=== PATIENT | female | born 1970 | race Caucasian/White ===

== ENCOUNTER 2020-01-23 02:32 | Inpatient (IN) | payer MEDICAID ==
[2020-01-22] MEDS: ALBUTEROL/IPRATROPIUM 2.5MG/0.5MG, 3 ML NPPB SCH (20:00)
[~2020-01-23] VITALS: Ht 160 cm; Wt 95.6 kg
[2020-01-23] MEDS ORDERED: ALBU90AE2 IH (02:55)
[2020-01-23] MEDS ORDERED: IPRA3AMP30 INH (02:55)
--- NOTE | 2020-01-23 03:13 | NUR ---
assessment made. chart up for MD to see. c/o cough non productive x 2 weeks. Hx of Asthma. denies exposure to people from other states or with respiratory problems.
--- NOTE | 2020-01-23 03:45 | NUR ---
RT at bedside for breathing treatment.
[2020-01-23] MEDS ORDERED: ALBUTEROL SULFATE 2.5 MG/3 ML NPPB ONE (04:00)
--- NOTE | 2020-01-23 04:00 | NUR ---
X ray done. blood drawn by director [employer].
[2020-01-23 04:22] LABS: BASOPHILS # (AUTO) 0.08 x10^3/uL (0-0.1); BASOPHILS % (AUTO) 1 % (0-1); EOSINOPHILS # (AUTO) 0.91 x10^3/uL (0-0.4); EOSINOPHILS % (AUTO) 8 % (1-7); LYMPHOCYTES # (AUTO) 3.23 x10^3/uL (1-3.4); LYMPHOCYTES % (AUTO) 30 % (22-44); MD NO; MEAN CORPUSCULAR HEMOGLOBIN 30.1 pg (27.0-34.8); MEAN CORPUSCULAR VOLUME 91.1 fL (80-100); MEAN PLATELET VOLUME 9.7 fL (7.4-10.4); MONOCYTES # (AUTO) 0.68 x10^3/uL (0.2-0.8); MONOCYTES % (AUTO) 6 % (2-9); NEUTROPHILS # (AUTO) 6.02 x10^3/uL (1.8-6.8); NEUTROPHILS % (AUTO) 55 % (42-75); PLATELET COUNT 239 x10^3/uL (130-400); RED BLOOD COUNT 4.34 x10^6/uL (3.82-5.3); RED CELL DISTRIBUTION WIDTH 14.5 % (9.6-15.2)
[2020-01-23 04:34] LABS: ALBUMIN 3.2 g/dL (3.4-5.0); ANION GAP 5 mmol/L (5-15); CALCIUM 8.5 mg/dL (8.5-10.1); CHLORIDE 108 mmol/L (98-107)
[2020-01-23 04:38] LABS: TROPONIN I < 0.015 ng/mL (0.000-0.045)
--- NOTE | 2020-01-23 04:48 | NUR ---
all labs and X ray resulted. chart up for MD to re-eval.
--- NOTE | 2020-01-23 05:14 | NUR ---
report to ROWAN Soriano.
[2020-01-23] MEDS ORDERED: SODIUM CHLORIDE 0.9% 1,000 ML IV ONE (06:13)
[2020-01-23] MEDS ORDERED: ONDANSETRON 2MG/ML, 2ML IVPush PRN (07:30)
[2020-01-23] MEDS ORDERED: hydrALAzine 20 MG/ML, 1ML IVPush PRN (07:30)
[2020-01-23] MEDS ORDERED: LABETALOL 5MG/ML, 20ML IVPush PRN (07:30)
--- NOTE | 2020-01-23 07:36 | NUR ---
REPORT RECEIVED FROM EROS RN, ASSUMED ACARE OF PT. MICKEY, ADMITTING MD AT BEDSIDE.
[2020-01-23] MEDS ORDERED: ALBUTEROL/IPRATROPIUM 2.5MG/0.5MG, 3 ML ONE (07:59)
[2020-01-23] MEDS ORDERED: BUDESONIDE 0.5 MG/2 ML INHA ONE (07:59)
[2020-01-23] MEDS: BUDESONIDE 0.5 MG/2 ML INHA INH SCH ×2 (09:00→19:57)
[2020-01-23] MEDS ORDERED: ALBUTEROL/IPRATROPIUM 2.5MG/0.5MG, 3 ML NPPB SCH (11:00)
[2020-01-23 11:30] VITALS: BP 122/76
[2020-01-23] MEDS: GUAIFENESIN ER 600 MG TABLET PO SCH ×2 (11:55→21:55)
[2020-01-23] MEDS: POTASSIUM CHLORIDE 20 MEQ TAB.ER.PRT PO SCH ×2 (11:55→18:22)
[2020-01-23] MEDS: methylPREDNISolone SOD SUCC 125 MG/2 ML IVPush SCH ×2 (11:55→18:22)
[2020-01-23] MEDS: HEPARIN 5,000 UNITS/ML, 1ML SQ SCH ×2 (12:01→21:55)
[2020-01-23] MEDS: ALBUTEROL/IPRATROPIUM 2.5MG/0.5MG, 3 ML NPPB SCH (12:45)
[2020-01-23] MEDS: AZITHROMYCIN 500 MG TABLET PO SCH (15:23)
[2020-01-23 17:13] VITALS: BP 140/70
[2020-01-23 18:59] VITALS: BP 130/72
[2020-01-24] MEDS: methylPREDNISolone SOD SUCC 125 MG/2 ML IVPush SCH ×4 (01:08→23:40)
[2020-01-24 03:15] VITALS: BP 109/51
[2020-01-24 04:53] LABS: MEAN CORPUSCULAR HEMOGLOBIN 30.3 pg (27.0-34.8); MEAN CORPUSCULAR HGB CONC 32.3 g/dL (32.4-35.8); MEAN CORPUSCULAR VOLUME 93.9 fL (80-100); MEAN PLATELET VOLUME 9.8 fL (7.4-10.4); PLATELET COUNT 273 x10^3/uL (130-400); RED BLOOD COUNT 4.77 x10^6/uL (3.82-5.3); RED CELL DISTRIBUTION WIDTH 14.9 % (9.6-15.2)
[2020-01-24 05:03] LABS: ALBUMIN 3.3 g/dL (3.4-5.0); ANION GAP 6 mmol/L (5-15); CALCIUM 8.8 mg/dL (8.5-10.1); CHLORIDE 113 mmol/L (98-107)
[2020-01-24 05:07] LABS: ALANINE AMINOTRANSFERASE 21 U/L (12-78); ALKALINE PHOSPHATASE 75 U/L (45-117); BILIRUBIN,TOTAL 0.2 mg/dL (0.2-1.0); CREATININE 0.76 mg/dL (0.55-1.02)
[2020-01-24 05:43] LABS: MD YES
[2020-01-24 05:45] LABS: <PLATELET ESTIMATE> ADEQUATE; <PLT MORPHOLOGY> NORMAL PLT MORPH; <RBC MORPHOLOGY> NORMAL; BAND#(MANUAL) 0.35 x10^3/uL; BANDS%(MANUAL) 2 % (0-7); EOS#(MANUAL) 0.17 x10^3/uL (0.0-0.4); EOS% (MANUAL) 1 % (1-7); LYMPH#(MANUAL) 0.69 x10^3/uL (1-3.4); LYMPHS% (MANUAL) 4 % (22-44); SEG#(MANUAL) 16.09 x10^3/uL (1.8-6.8); SEGS% (MANUAL) 93 % (42-75)
[2020-01-24] MEDS: HEPARIN 5,000 UNITS/ML, 1ML SQ SCH ×3 (06:57→23:40)
[2020-01-24] MEDS: BUDESONIDE 0.5 MG/2 ML INHA INH SCH ×2 (07:46→20:00)
[2020-01-24] MEDS: ALBUTEROL/IPRATROPIUM 2.5MG/0.5MG, 3 ML NPPB SCH ×4 (07:46→20:00)
[2020-01-24 07:55] VITALS: BP 110/58
[2020-01-24] MEDS: AZITHROMYCIN 500 MG TABLET PO SCH (08:16)
[2020-01-24] MEDS: GUAIFENESIN ER 600 MG TABLET PO SCH ×2 (08:16→21:10)
[2020-01-24] MEDS: POTASSIUM CHLORIDE 20 MEQ TAB.ER.PRT PO SCH ×2 (08:16→16:58)
[2020-01-24 12:27] VITALS: BP 129/59
[2020-01-24 18:38] VITALS: BP 134/75
[2020-01-25] VITALS: BP 134/78
[2020-01-25] MEDS: BUDESONIDE 0.5 MG/2 ML INHA INH SCH (06:47)
[2020-01-25] MEDS: ALBUTEROL/IPRATROPIUM 2.5MG/0.5MG, 3 ML NPPB SCH ×2 (06:47→09:34)
[2020-01-25] MEDS: POTASSIUM CHLORIDE 20 MEQ TAB.ER.PRT PO SCH (08:00)
[2020-01-25] MEDS: AZITHROMYCIN 500 MG TABLET PO SCH (08:05)
[2020-01-25] MEDS: GUAIFENESIN ER 600 MG TABLET PO SCH (08:05)
[2020-01-25] MEDS: methylPREDNISolone SOD SUCC 125 MG/2 ML IVPush SCH (08:06)
[2020-01-25] MEDS: HEPARIN 5,000 UNITS/ML, 1ML SQ SCH (08:06)
[2020-01-25 08:08] VITALS: BP 134/83
[2020-01-25] MEDS ORDERED: PRED20TA PO (10:27)
[2020-01-25] MEDS ORDERED: AZIT500T10 PO (10:27)
== END 2020-01-25 13:11 | disposition home or self-care (01) | DRG 189 ==
LOC: ED 05:57 → EDIP 07:02 → 4NW 08:24 → 3N 01-24 23:11
PROVIDERS: ADMIT Internal Medicine; ATTEND Internal Medicine
DX: J96.01 Acute respiratory failure with hypoxia (principal); J44.0 Chronic obstructive pulmonary disease with (acute) lower respiratory infection; J45.41 Moderate persistent asthma with (acute) exacerbation; J44.1 Chronic obstructive pulmonary disease with (acute) exacerbation; E87.6 Hypokalemia; D72.829 Elevated white blood cell count, unspecified; A49.9 Bacterial infection, unspecified; J22 Unspecified acute lower respiratory infection; E66.9 Obesity, unspecified; R73.9 Hyperglycemia, unspecified; Z59.0 Homelessness; Z90.49 Acquired absence of other specified parts of digestive tract; Z88.1 Allergy status to other antibiotic agents; Z91.048 Other nonmedicinal substance allergy status
CPT/HCPCS: 36415; 99285; J7613; J7626; 71045; 80048; 80053; 82040; 83036; 83735; 84484; 85025; 94640; G0378; J1644; J2930; J7030; J7512